=== PATIENT | male | born 1980 | race Caucasian/White ===

== ENCOUNTER 2021-02-07 17:19 | Emergency (ER) | payer OTHER ==
[~2021-02-07 17:19] MED LIST: CYCLOBENZAPRINE10 MG PO; ETODOLAC500 MG PO
== END 2021-02-07 19:30 | disposition left against medical advice (07) ==
LOC: FER 17:19
DX: Z53.8 Procedure and treatment not carried out for other reasons (principal)
CPT/HCPCS: 71101